=== PATIENT | female | born 1990 | race Caucasian/White ===

== ENCOUNTER → 2019-01-14 | Day surgery (SDC) | payer BC | LOC: MSO 07:09 | DX: D17.0 Benign lipomatous neoplasm of skin and subcutaneous tissue of head, face and neck (principal); J45.909 Unspecified asthma, uncomplicated | CPT/HCPCS: J2704; J3010; J7120 ==

== ENCOUNTER 2019-07-05 17:09 | Emergency (ER) | payer BC ==
[~2019-07-05] VITALS: Ht 172.7 cm; Wt 72.3 kg
[2019-07-05] MEDS ORDERED: DIETHYLPROPION25 M3 PO (17:17)
[2019-07-05] MEDS ORDERED: OMEPRAZOLE20 M3 PO (18:33)
[2019-07-05 18:43] VITALS: BP 147/88
== END 2019-07-05 18:44 | disposition home or self-care (01) ==
LOC: ED 17:09
DX: M94.0 Chondrocostal junction syndrome [Tietze] (principal); K21.9 Gastro-esophageal reflux disease without esophagitis
CPT/HCPCS: J1885

== ENCOUNTER → 2020-03-12 | Outpatient (CLI) | payer BC ==
[~2020-03-12] MED LIST: DIETHYLPROPION25 M3 PO; OMEPRAZOLE20 M3 PO
== END ==
LOC: LAB 10:04
DX: M79.10 Myalgia, unspecified site (principal); R11.2 Nausea with vomiting, unspecified; R19.7 Diarrhea, unspecified; R53.83 Other fatigue; Z20.828 Contact with and (suspected) exposure to other viral communicable diseases

== ENCOUNTER → 2022-01-03 | Outpatient (CLI) | payer BC | LOC: RAD 16:25 | DX: M41.86 Other forms of scoliosis, lumbar region (principal) ==

== ENCOUNTER → 2022-10-20 | Outpatient (CLI) | payer BC | LOC: LAB 17:44 | DX: N91.1 Secondary amenorrhea (principal) ==

== ENCOUNTER → 2024-01-30 | Outpatient (CLI) | payer BC ==
[~2024-01-30] MED LIST changes: +CEPHALEXIN500 M1 PO
== END ==
LOC: LAB 18:51
DX: R35.0 Frequency of micturition (principal)

== ENCOUNTER → 2024-04-12 | Outpatient (CLI) | payer BC | LOC: LAB 11:43 | DX: N91.1 Secondary amenorrhea (principal) ==